=== PATIENT | male | born 1985 | race Caucasian/White ===

== ENCOUNTER 2017-11-02 11:38 | Emergency (ER) | payer MEDICAID, OTHER ==
[2017-11-02 11:47] VITALS: BP 125/85
--- NOTE | 2017-11-02 12:01 | ER Document Report ---
HPI - HPI Patient complains to provider of: abscess left buttocks Onset: Other - 2 days Quality of pain: Throbbing Pain Level: 2 Context: 32 yo male with left buttocks abscess for 2 days. Associated Symptoms: None Exacerbated by: Movement Relieved by: Denies Similar symptoms previously: No Recently seen / treated by doctor: No - ROS ROS below otherwise negative: Yes Systems Reviewed and Negative: Yes All other systems reviewed and negative Past Medical History - General Information source: Patient - Social History Smoking Status: Never Smoker Frequency of alcohol use: None Drug Abuse: None Lives with: Family Family History: Reviewed & Not Pertinent, Arthritis, CAD, CVA, Hypertension, Malignancy Pulmonary Medical History: Reports: Hx Asthma Musculoskeltal Medical History: Reports Hx Arthritis, Reports Hx Musculoskeletal Deformity, Reports Hx Musculoskeletal Trauma Psychiatric Medical History: Reports: Hx Post Traumatic Stress Disorder Traumatic Medical History: Reports: Hx Fractures - foot wrist Past Surgical History: Reports: Hx Oral Surgery - wisdom, Hx Orthopedic Surgery - left knee surgery - Immunizations Immunizations up to date: Yes Hx Diphtheria, Pertussis, Tetanus Vaccination: Yes - 2013 Vertical Provider Document - CONSTITUTIONAL Agree With Documented VS: Yes Exam Limitations: No Limitations General Appearance: No Apparent Distress - INFECTION CONTROL TRAVEL OUTSIDE OF THE [place] IN LAST 30 DAYS: No - HEENT HEENT: Normocephalic - NECK Neck: Supple - NEURO Level of Consciousness: Awake, Alert - DERM Integumentary: Abscess - crusted left buttocks 2 cm Course - Vital Signs Vital signs: Temp Pulse Resp BP Pulse Ox 99.4 F 93 18 125/85 96 11/02/17 11:45 11/02/17 11:45 11/02/17 11:45 11/02/17 11:45 11/02/17 11:45 Procedures - Incision and Drainage Left Buttock Time completed: 12:34 Type: Simple Anesthetic type: 1% Lidocaine mL's of anesthetic: 3 Blade size: 11 Incision Method: Incision made by scalpel Amount/type of drainage: large pus, devitalized tissue removed Discharge - Discharge Clinical Impression: Left buttocks abscess I&D Condition: Good Disposition: HOME, SELF-CARE Instructions: Abscess ([facility]), Post Incision and Drainage, Trimethoprim-Sulfa ( [facility]) Additional Instructions: Wash vigorously with a washcloth in the shower with antibacterial soap and water Dry dressing Return to the emergency room any concerns Take the Septra until it is gone Prescriptions: Sulfamethoxazole/Trimethoprim [Sulfamethoxazole-Tmp Ds Tablet] 1 each PO BID # 14 tablet Forms: Return to Work Referrals: RYAN BERRIOS DO [Primary Care Provider] - Follow up as needed
[2017-11-02] MEDS ORDERED: SULFAMETHOXAZOLE/TRIMETHOPRIM 800-160 MG TABLET PO ONE (12:04)
[2017-11-02] MEDS ORDERED: IBUPROFEN 800 MG TABLET PO ONE (12:05)
== END 2017-11-02 12:42 | disposition home or self-care (01) ==
LOC: ER 11:38
PROC: 0H98XZZ Drainage of Buttock Skin, External Approach (ICD-10-PCS; principal; 2017-11-02)
DX: L02.31 Cutaneous abscess of buttock (principal); J45.909 Unspecified asthma, uncomplicated
CPT/HCPCS: 99283; 10060; J3490 ×2

== ENCOUNTER 2018-06-04 13:20 | Emergency (ER) | payer OTHER, MEDICAID ==
[2018-06-04 13:40] VITALS: BP 128/68
[2018-06-04] MEDS ORDERED: HYDROCODONE/ACETAMINOPHEN 5-325 MG (6 TAB/ER DISP) PO PRN (14:01)
--- NOTE | 2018-06-04 14:06 | ER Document Report ---
ED General - General Chief Complaint: Back Pain Stated Complaint: BACK AND LEG PAIN Time Seen by Provider: 06/04/18 13:51 Notes: Patient is a 33-year-old male that presents to the emergency department for chief complaint of low back pain after injury. Patient reports that last Tuesday or Tuesday he lifted a couch and had it on its end, sweeping underneath it, the couch came down and struck him in the low back, and knocked him over. He said pain since then, describes as an aching sensation, and currently rates it as a 4 out of 10. Has been taking [id number] Motrin without much relief of his symptoms so he decided come to the emergency department. His had associated pain that radiates down the left leg occasionally describes as a sharp electric type pain. Denies prior history of chronic low back pain or other injuries to the back in the past. He denies any numbness, tingling or weakness, denies urinary or bowel or bladder incontinence. Past Medical History: Asthma, arthritis Past Surgical History: Positive for left knee surgery, and wisdom tooth extraction Social History: Former smoker, denies current alcohol or drug use. Family History: Reviewed and noncontributory for presenting illness Allergies: Reviewed, see documented allergy list. REVIEW OF SYSTEMS: Other than noted above, the 12 point review of systems was reviewed with the patient and were negative, all pertinent findings are included in the HPI. PHYSICAL EXAMINATION: Vital signs reviewed. GENERAL: Well-appearing, well-nourished and in no acute distress. HEAD: Atraumatic, normocephalic. EYES: Pupils equal round extraocular movements intact, conjunctiva are normal. ENT: Nares patent NECK: Normal range of motion CV: Heart regular rate and rhythm LUNGS: No respiratory distress Musculoskeletal: Normal range of motion, tenderness to palpation to the paraspinal musculature of the lumbar spine bilaterally, worse on the left compared to the right, mild tenderness to palpation in the sciatic region, over the piriformis on the left, but not on the right. Normal gait, negative straight leg raising. Reflexes are +2/4 bilaterally in the patellar and Achilles tendon reflexes. Muscular motor strength is +5/5 distally in all extremities. Patient has good range of motion with side bending, and rotation of the spine, he does have some pain and discomfort with flexion and extension. NEUROLOGICAL: Normal speech, normal reflexes as noted above, no focal neurological deficits, sensation intact distally. Normal gait. PSYCH: Normal mood, normal affect. TRAVEL OUTSIDE OF THE [place] IN LAST 30 DAYS: No - Related Data Allergies/Adverse Reactions: No Known Allergies Allergy (Verified 04/24/16 20:20) Past Medical History - Social History Smoking Status: Former Smoker Chew tobacco use (# tins/day): No Frequency of alcohol use: Rare Drug Abuse: None Family History: Reviewed & Not Pertinent, Arthritis, CAD, CVA, Hypertension, Malignancy Patient has suicidal ideation: No Patient has homicidal ideation: No Pulmonary Medical History: Reports: Hx Asthma Endocrine Medical History: Denies: Hx Diabetes Mellitus Type 1, Hx Diabetes Mellitus Type 2 Renal/ Medical History: Denies: Hx Peritoneal Dialysis Musculoskeletal Medical History: Reports Hx Arthritis, Reports Hx Musculoskeletal Deformity, Reports Hx Musculoskeletal Trauma Psychiatric Medical History: Reports: Hx Post Traumatic Stress Disorder Traumatic Medical History: Reports: Hx Fractures - foot wrist Past Surgical History: Reports: Hx Oral Surgery - wisdom, Hx Orthopedic Surgery - left knee surgery - Immunizations Immunizations up to date: Yes Hx Diphtheria, Pertussis, Tetanus Vaccination: Yes - 2013 Physical Exam - Vital signs Vitals: Temp Pulse Resp BP Pulse Ox 98.6 F 71 16 128/68 H 96 06/04/18 13:38 06/04/18 13:38 06/04/18 13:38 06/04/18 13:38 06/04/18 13:38 Course - Re-evaluation Re-evalutation: Patient seen and examined, appears well on exam I do not feel he needed any x- ray imaging or CT imaging at this time, patient had a normal gait, no focal neurological deficits, no symptoms of sciatica, will treat him with prednisone, given a [place] dispense pack of 6 tablets, and given a prescription for naproxen 500 mg twice daily, advised to follow-up with his primary care physician, if his symptoms were improving, if he developed any neurological deficits such as numbness, or weakness, he should return to the emergency department. Patient agreeable and discharged home. - Vital Signs Vital signs: Temp Pulse Resp BP Pulse Ox 98.6 F 71 16 128/68 H 96 06/04/18 13:38 06/04/18 13:38 06/04/18 13:38 06/04/18 13:38 06/04/18 13:38 Discharge - Discharge Clinical Impression: Back pain Qualifiers: Back pain location: low back pain Chronicity: acute Back pain laterality: bilateral Sciatica presence: with sciatica Sciatica laterality: sciatica of left side Qualified Code(s): M54.42 - Lumbago with sciatica, left side Condition: Stable Disposition: HOME, SELF-CARE Instructions: Low Back Pain ([facility]), Warm Packs ([facility]) Additional Instructions: You should apply warm or cool compresses for 20 minutes on and 20 minutes off to help with your pain in addition to taking and prescribed medications, please follow-up with your primary care physician otherwise. If your symptoms worsen or do not improve, you can come back to the emergency department to be reevaluated. Prescriptions: Naproxen [Naprosyn] 500 mg PO BID PRN #30 tablet PRN Reason: back pain Prednisone [Deltasone 20 mg Tablet] 40 mg PO DAILY #10 tablet Referrals: RYAN BERRIOS DO [Primary Care Provider] - Follow up in 3-5 days
== END 2018-06-04 14:10 | disposition home or self-care (01) ==
LOC: ER 13:20
DX: M54.42 Lumbago with sciatica, left side (principal); Z87.891 Personal history of nicotine dependence
CPT/HCPCS: 99283

== ENCOUNTER 2020-02-17 09:28 | Emergency (ER) | payer OTHER, MEDICAID ==
[2020-02-17] MEDS ORDERED: ONDANSETRON HCL INJ/PF 4 MG/2 ML SDV IV ONE ×2 (11:55→17:48)
[2020-02-17] MEDS ORDERED: MORPHINE SULFATE 10 MG/ML INJ IV ONE ×2 (11:55→17:48)
[2020-02-17] MEDS ORDERED: NORMAL SALINE 1000 ML 1,000 ML IV ONE ×2 (11:55→16:40)
[2020-02-17 12:27] LABS: VENOUS BLOOD BASE EXCESS 3.8 mmol/L; VENOUS BLOOD HCO3 29.6 mmol/L (20-32); VENOUS BLOOD PCO2 48.8 mmHg (35-63); VENOUS BLOOD PH 7.4 (7.30-7.42)
[2020-02-17 12:31] LABS: ABSOLUTE LYMPHOCYTES (AUTO) 1.6 10^3/uL (0.5-4.7); ABSOLUTE MONOCYTES (AUTO) 1.3 10^3/uL (0.1-1.4); ABSOLUTE NEUT (AUTO) 13.8 10^3/uL (1.7-8.2); BASOPHILS % (AUTO) 0.1 % (0-2); EOSINOPHILS % (AUTO) 0.3 % (0-6); HEMATOCRIT 42.7 % (37.9-51.0); HEMOGLOBIN 14.9 g/dL (13.5-17.0); LYMPHOCYTES % (AUTO) 9.4 % (13-45); MEAN CORPUSCULAR HEMOGLOBIN 30.9 pg (27.0-33.4); MEAN CORPUSCULAR HGB CONC 34.9 g/dL (32.0-36.0); MEAN CORPUSCULAR VOLUME 88 fl (80-97); MONOCYTES % (AUTO) 7.7 % (3-13); PLATELET COUNT 254 10^3/uL (150-450); RED BLOOD COUNT 4.83 10^6/uL (4.35-5.55); RED CELL DISTRIBUTION WIDTH 13.7 % (11.5-14.0); SEGMENTED NEUTROPHILS % (AUTO) 82.5 % (42-78); TOTAL CELLS COUNTED % (AUTO) 100 %; WHITE BLOOD COUNT 16.8 10^3/uL (4.0-10.5)
[2020-02-17 12:37] LABS: INTERNATIONAL RATION (INR) 1.09; PROTHROMBIN TIME 14.3 SEC (11.4-15.4)
[2020-02-17 12:38] LABS: PARTIAL THROMBOPLASTIN TIME 44.4 SEC (23.5-35.8)
[2020-02-17 12:45] LABS: ALBUMIN 4.6 g/dL (3.5-5.0); ALKALINE PHOSPHATASE 86 U/L (38-126); ANION GAP 11 (5-19); ASPARTATE AMINO TRANSFERASE 25 U/L (17-59); BILIRUBIN,TOTAL 2.7 mg/dL (0.2-1.3); BLOOD UREA NITROGEN 15 mg/dL (7-20); CALCIUM 9.6 mg/dL (8.4-10.2); CARBON DIOXIDE 29 mmol/L (22-30); CHLORIDE 101 mmol/L (98-107); GLUCOSE 94 mg/dL (75-110); POTASSIUM 3.4 mmol/L (3.6-5.0); TOTAL PROTEIN 7.8 g/dL (6.3-8.2)
[2020-02-17 12:46] LABS: ACETAMINOPHEN < 10 ug/mL (10-30); ALCOHOL < 10 mg/dL (NONE DETECTED)
[2020-02-17 13:37] LABS: APPEARANCE,URINE SLIGHTLY-CLOUDY; BILIRUBIN,URINE NEGATIVE (NEGATIVE); COLOR,URINE YELLOW; GLUCOSE, URINE NEGATIVE (NEGATIVE); KETONES,URINE 20 mg/dL (NEGATIVE); LEUKOCYTE ESTERASE,URINE NEGATIVE (NEGATIVE); NITRITE,URINE NEGATIVE (NEGATIVE); PROTEIN,URINE NEGATIVE (NEGATIVE)
[2020-02-17 13:51] LABS: URINE AMPHETAMINES SCREEN NEGATIVE; URINE BARBITURATES SCREEN NEGATIVE; URINE BENZODIAZEPINES SCREEN NEGATIVE; URINE COCAINE SCREEN NEGATIVE; URINE MARIJUANA (THC) SCREEN NEGATIVE; URINE METHADONE SCREEN NEGATIVE; URINE PHENCYCLIDINE SCREEN NEGATIVE
[2020-02-17] MEDS ORDERED: HYDROMORPHONE HCL INJ/PF 2 MG/ML AMPULE IV ONE ×2 (13:59→23:42)
--- NOTE | 2020-02-17 14:00 | RADIOLOGY REPORT (SQ) ---
EXAM DESCRIPTION: U/S ABDOMEN COMPLETE W/DOPPLER IMAGES COMPLETED DATE/TIME: 02/17/2020 1:24 pm REASON FOR STUDY: ruq pain COMPARISON: None. TECHNIQUE: Dynamic and static grayscale images acquired of the abdomen and recorded on PACS. Additio nal selected color Doppler and spectral images recorded. Note: Study does not meet criteria for complete doppler/duplex scan LIMITATIONS: None. FINDINGS: PANCREAS: Poorly seen LIVER: 18 cm. Fatty infiltration. 1 cm cysts in the left lobe. LIVER VASCULATURE: Normal directional flow of the main portal vein and hepatic veins. GALLBLADDER: Stones and sludge. No gallbladder wall thickening ULTRASOUND-DETECTED DOMINIQUE'S SIGN: Negative. INTRAHEPATIC DUCTS AND COMMON DUCT: CBD and intrahepatic ducts normal caliber. No filling defects. INFERIOR VENA CAVA: Normal flow. AORTA: No aneurysm. RIGHT KIDNEY: Normal size. Normal echogenicity. No solid or suspicious masses. No hydronephros is. No calcifications. LEFT KIDNEY: Normal size. Normal echogenicity. No solid or suspicious masses. No hydronephrosi s. No calcifications. SPLEEN: Normal size. No solid masses. PERITONEAL AND PLEURAL SPACES: No ascites or effusions. OTHER: No other significant finding. IMPRESSION: Fatty liver. Stones and sludge in the gallbladder. TECHNICAL DOCUMENTATION: JOB ID: [id number] 2010 [employer]- All Rights Reserved Reading location - IP/workstation name: [email or web address]
--- NOTE | 2020-02-17 17:18 | RADIOLOGY REPORT (SQ) ---
EXAM DESCRIPTION: CHEST SINGLE VIEW IMAGES COMPLETED DATE/TIME: 02/17/2020 5:09 pm REASON FOR STUDY: Right upper quadrant abdominal pain/leukocytosis COMPARISON: 09/16/2015 EXAM PARAMETERS: NUMBER OF VIEWS: One view. TECHNIQUE: Single frontal radiographic view of the chest acquired. RADIATION DOSE: NA LIMITATIONS: None. FINDINGS: LUNGS AND PLEURA: No opacities, masses or pneumothorax. No pleural effusion. MEDIASTINUM AND HILAR STRUCTURES: No masses. Contour normal. HEART AND VASCULAR STRUCTURES: Heart normal in size. Normal vasculature. BONES: No acute findings. HARDWARE: None in the chest. OTHER: No other significant finding. IMPRESSION: NO ACUTE RADIOGRAPHIC FINDING IN THE CHEST. TECHNICAL DOCUMENTATION: JOB ID: [id number] 2010 [employer]- All Rights Reserved Reading location - IP/workstation name: [email or web address]
[2020-02-17] MEDS ORDERED: PIPERACILLIN/TAZOBACTAM 3.375 GM VIAL IV ONE (17:19)
--- NOTE | 2020-02-17 17:24 | ER Document Report ---
Doctor's Note Notes: 02/17/20 17:21 Received patient in sign out. I have reviewed RUQ US and labs, started zosyn for concern for cholecystitis or cholangitis. I discussed with Dr. East. Given that the Tbili is 2.7, he is recommending transfer for ERCP. CT abdomen is still pending at this time.
[2020-02-17] MEDS: HYDROMORPHONE HCL INJ/PF 2 MG/ML AMPULE IV PRN ×2 (18:16→20:42)
--- NOTE | 2020-02-17 18:30 | RADIOLOGY REPORT (SQ) ---
EXAM DESCRIPTION: CT ABD/PELVIS WITH IV ORAL IMAGES COMPLETED DATE/TIME: 02/17/2020 6:00 pm REASON FOR STUDY: abd pain COMPARISON: None. TECHNIQUE: CT scan of the abdomen and pelvis performed using helical scanning technique with dynamic intravenous contrast injection and oral contrast. Images reviewed with lung, soft tissue, and bone w indows. Reconstructed coronal and sagittal MPR images reviewed. Delayed images for evaluation of the urinary system also acquired. All images stored on PACS. All CT scanners at this facility use dose modulation, iterative reconstruction, and/or weight based d osing when appropriate to reduce radiation dose to as low as reasonably achievable (ALARA). [facility]: Dose Right [facility]: CareDose [facility]: Dose Right [facility]: Teradose 4D [facility]: Smarterer CONTRAST TYPE AND DOSE: contrast/concentration: Isovue 350.00 mmol/ml; Total Contrast Delivered: 99. 0 ml; Total Saline Delivered: 66.9 ml RENAL FUNCTION: GFR > 60. RADIATION DOSE: CT Rad equipment meets quality standard of care and radiation dose reduction techniq ues were employed. CTDIvol: 17.0 - 20.0 mGy. DLP: 2075 mGy-cm.. LIMITATIONS: None. FINDINGS: LOWER CHEST: No significant findings. LIVER: Normal size. No enhancing masses. No dilated ducts. SPLEEN: Normal size. No focal lesions. PANCREAS: No masses identified. No significant calcifications. No adjacent inflammation or peripancre atic fluid collections. Pancreatic duct not dilated. GALLBLADDER: No calcified stones. There are inflammatory changes adjacent to the gallbladder, possib le cholecystitis. ADRENAL GLANDS: No significant masses. RIGHT KIDNEY AND URETER: No cysts identified. No solid masses identified. No calcified stones. No hyd ronephrosis or hydroureter. LEFT KIDNEY AND URETER: No cysts identified. No solid masses identified. No calcified stones. No hydr onephrosis or hydroureter. AORTA AND VESSELS: No aneurysm. No dissection. Renal arteries, SMA, celiac without significant stenos is. RETROPERITONEUM: No bulky retroperitoneal adenopathy. BOWEL AND PERITONEAL CAVITY: No obstruction or inflammatory changes. No free fluid. APPENDIX: Normal. PELVIS: No mass. No free fluid. Unremarkable bladder. ABDOMINAL WALL: No masses. No hernias. BONES: No acute findings. OTHER: No other significant finding. IMPRESSION: There are inflammatory changes adjacent to the gallbladder, possible cholecystitis. No calcified stones or biliary dilatation. TECHNICAL DOCUMENTATION: JOB ID: [id number]-72 Quality ID # [id number]: Final reports with documentation of one or more dose reduction techniques (e.g., Au tomated exposure control, adjustment of the mA and/or kV according to patient size, use of iterative reconstruction technique) 2010 [employer]- All Rights Reserved Reading location - IP/workstation name: [employer]
--- NOTE | 2020-02-17 18:45 | ER Document Report ---
Doctor's Note Notes: 02/17/20 18:44 CT abdomen has resulted which shows cholecystitis. He does comment that there is no obvious biliary ductal dilation. I did call back to our surgeon to rediscuss given this new information. He again states that given that the bilirubin is 2.7 he will not be able to operate on this patient here and again emphasizes the patient needs transfer.
--- NOTE | 2020-02-17 18:57 | ER Document Report ---
Doctor's Note Notes: 02/17/20 18:54 I have updated pt and his on results and need for transfer. I have called [facility] transfer, will receive call back from surgery team 02/17/20 19:[address] Pruitt of general surgery, he has accepted the patient in transfer, greatly appreciate his assistance.
--- NOTE | 2020-02-17 20:12 | EKG REPORT ---
SEVERITY:- NORMAL ECG - SINUS RHYTHM : Confirmed by: Josiah Colón MD 17-Feb-2020 20:12:23
[2020-02-17 20:15] VITALS: BP 136/74
--- NOTE | 2020-02-17 23:42 | ER Document Report ---
Doctor's Note Notes: 02/17/20 23:42 Transport has arrived for patient. I have gone and reassessed him. He stable for transfer at this time. Have ordered him a dose of pain medication.
--- NOTE | 2020-04-09 15:08 | ER Document Report ---
Entered by KERMIT GARY SCRIBE 02/17/20 1249 Acting as scribe for:KRYSTAL APARICIO MD ED GI/ - General Chief Complaint: Abdominal Pain Stated Complaint: BODY SWELLING,VOMITING Time Seen by Provider: 02/17/20 10:52 Primary Care Provider: EBER,BRENDA [Primary Care Provider] - Follow up as needed Information source: Patient Notes: This 34 year old male patient presents to the emergency department today with RUQ pain since x2 days ago. Patient states the pain has started to radiate to his back and reports nausea without vomiting. Patient reports loss of appetite f rom his nausea and has only had soup for his meals the past x2 days, with his last meal being yesterday at 6 pm. Denies history of hepatitis, abdominal surgery, or similar pain before. Patient states he is in the and is on several medications for his PTSD. Denies any fever or chills. TRAVEL OUTSIDE OF THE [place] IN LAST 30 DAYS: No - Related Data Allergies/Adverse Reactions: No Known Allergies Allergy (Verified 04/24/16 20:20) Home Medications: Robaxin,Sertraline, Depakote, Prazosin Past Medical History - General Information source: Patient - Social History Smoking Status: Never Smoker Cigarette use (# per day): No Chew tobacco use (# tins/day): No Frequency of alcohol use: Rare Drug Abuse: None Occupation: Lives with: Family Family History: Reviewed & Not Pertinent, Arthritis, CAD, CVA, Hypertension, Malignancy Pulmonary Medical History: Reports: Hx Asthma GI Medical History: Denies: Hx Hepatitis Musculoskeletal Medical History: Reports Hx Arthritis, Reports Hx Musculoskeletal Deformity, Reports Hx Musculoskeletal Trauma Psychiatric Medical History: Reports: Hx Post Traumatic Stress Disorder Traumatic Medical History: Reports: Hx Fractures - foot wrist, Other - Traumatic injury R eye Past Surgical History: Reports: Hx Oral Surgery - wisdom, Hx Orthopedic Surgery - left knee surgery. Denies: Hx Abdominal Surgery - Immunizations Immunizations up to date: Yes Hx Diphtheria, Pertussis, Tetanus Vaccination: Yes - 2013 Review of Systems - Review of Systems Constitutional: See HPI. denies: Chills, Fever EENT: No symptoms reported Cardiovascular: No symptoms reported Respiratory: No symptoms reported Gastrointestinal: See HPI, Abdominal pain - RUQ, Nausea, Poor appetite. denies: Vomiting Genitourinary: No symptoms reported Male Genitourinary: No symptoms reported Musculoskeletal: See HPI Skin: No symptoms reported Hematologic/Lymphatic: No symptoms reported Neurological/Psychological: No symptoms reported -: Yes All other systems reviewed and negative Physical Exam - Vital signs Vitals: Temp Pulse Resp BP Pulse Ox 100.1 F 81 18 115/73 99 02/17/20 09:34 02/17/20 09:34 02/17/20 09:34 02/17/20 09:34 02/17/20 09:34 - General General appearance: Appears well, Alert - HEENT Head: Normocephalic, Atraumatic Eyes: Normal Pupils: PERRL - Respiratory Respiratory status: No respiratory distress Chest status: Nontender Breath sounds: Normal Chest palpation: Normal - Cardiovascular Rhythm: Regular Heart sounds: Normal auscultation Murmur: No - Abdominal Inspection: Obese Notes: Positive Denson's sign in the RUQ. Extreme tenderness with palpation to the RUQ. - Extremities General upper extremity: Normal inspection. No: Edema General lower extremity: Normal inspection. No: Edema - Neurological Neuro grossly intact: Yes Cognition: Normal Orientation: AAOx4 Speech: Normal - Psychological Associated symptoms: Normal affect, Normal mood - Skin Skin Temperature: Warm Skin Moisture: Dry Skin Color: Normal Course - Re-evaluation Re-evalutation: 02/17/20 16:35 Patient still having right upper quadrant abdominal pain. Ultrasound has been completed this shows no acute process other than patient has stones and sludge in his gallbladder with no gallbladder wall thickening or javier-cholecystitis. - Vital Signs Vital signs: Temp Pulse Resp BP Pulse Ox 99.6 F 74 16 136/74 H 97 02/17/20 20:10 02/17/20 20:10 02/17/20 20:10 02/17/20 20:10 02/17/20 20:10 02/17/20 16:36 Vital signs stable - Laboratory Result Diagrams: 02/17/20 12:03 02/17/20 12:03 Laboratory results interpreted by me: 02/17/20 02/17/20 02/17/20 12:03 12:03 12:03 WBC 16.8 H Lymph % (Auto) 9.4 L Absolute Neuts (auto) 13.8 H Seg Neutrophils % 82.5 H APTT 44.4 H Potassium 3.4 L Total Bilirubin 2.7 H Urine Ketones Urine Blood Urine Urobilinogen Acetaminophen < 10 L 02/17/20 13:00 WBC Lymph % (Auto) Absolute Neuts (auto) Seg Neutrophils % APTT Potassium Total Bilirubin Urine Ketones 20 H Urine Blood SMALL H Urine Urobilinogen 4.0 H Acetaminophen 02/17/20 16:36 Patient has an elevated white blood cell count of 16.8 and bilirubin of 2.7. Other liver function tests within normal limits including normal lipase. 02/17/20 16:37 - Diagnostic Test Radiology reviewed: Image reviewed, Reports reviewed Radiology results interpreted by me: 02/17/20 16:38 Ultrasound disclose gallbladder sludge and stones no gallbladder wall thickening or any obstructive pattern noted. No other acute process. - EKG Interpretation by Me Additional EKG results interpreted by me: 02/17/20 16:38 Twelve-lead EKG shows normal sinus rhythm rate of [address]-T wave changes. - Transfer of Care Care transferred to following provider: Dr. Wolff Discharge - Discharge Clinical Impression: Abdominal pain, Cholelithiasis Disposition: [facility]errals: [facility] [Primary Care Provider] - Follow up as needed I personally performed the services described in the documentation, reviewed and edited the documentation which was dictated to the scribe in my presence, and it accurately records my words and actions.
== END 2020-02-17 23:58 | disposition short-term general hospital (02) ==
LOC: ER 09:28
DX: K80.20 Calculus of gallbladder without cholecystitis without obstruction (principal); R10.9 Unspecified abdominal pain; R10.11 Right upper quadrant pain; R60.0 Localized edema; M54.9 Dorsalgia, unspecified; R11.0 Nausea; R63.0 Anorexia; Z79.899 Other long term (current) drug therapy; J45.909 Unspecified asthma, uncomplicated
CPT/HCPCS: 93005; 96376; 99285; 96361; 96375; 96365; 86900; 86901; 36415; 87040; 86850; 80307 ×3; 83605; 83690; 85025; 85610; 85730; 87077; 80053; 81001; 82803; 87150 ×26; 71045; 76700; 93976; 74177; 93010; J2270; J1170; J2405; J7030; J2543